=== PATIENT | female | born 2005 | race Caucasian/White ===

== ENCOUNTER 2024-05-12 12:48 | Emergency (ER) | payer OTHER, SELFPAY ==
--- NOTE | ~2024-05-12 | CT_ITS ---
EXAMINATION CT HEAD WITHOUT CONTRAST CLINICAL INFORMATION: Headache COMPARISON: None TECHNIQUE: CT of the head was performed without intravenous contrast. Reformatted axial, coronal, and sagittal images were reviewed. This CT examination was performed using dose optimization techniques as appropriate, variously including the following: *Automated exposure control *Adjustment of mA and/or kV according to patient size (this includes techniques or standardized protocols for targeted exams where dose is matched to indication/reason for exam; i.e. extremities or head) *Use of iterative reconstruction technique DLP: 605 mGy-cm FINDINGS: No intracranial hemorrhage, extra-axial fluid collection, or midline shift is identified. Helm-white matter differentiation is preserved. The ventricles are within normal limits. Basal cisterns are within normal limits. Paranasal sinuses are clear. Mastoid air cells and middle ear cavities are clear. No acute calvarial fractures. CT/CT head/brain wo IV con IMPRESSION: No acute intracranial abnormality. Electronically signed by: Kamaljit Hickey DO 05/12/2024 09:45 PM [facility]
[2024-05-12 12:56] VITALS: BP 150/84; PULSE 84; RESP 20; TEMP 36.9; O2SAT 98; BMI 22.5
--- NOTE | 2024-05-12 12:56 | ED.HA ---
HPI - Headache General Chief Complaint: Headache Stated Complaint: migraine two weeks Time Seen by Provider: 05/12/24 19:43 Source: patient Mode of arrival: ambulatory Limitations: no limitations History of Present Illness ED Provider: CAROLA HPI Narrative: 19 yo female with prior hx of headaches but they usually resolve after 1 day now has a headache for 2 weeks with nausea and photophobia. She denies URI symptoms, head trauma, fevers. States she tries to take excedrin but it won't go away elicited complaint: headache and migraine Pertinent past history: migraines Onset (ago): week(s) (2) Onset description: gradually Location: generalized Severity: moderate Quality & Timing: aching and progressively worsening Exacerbating factors: light and noise Relieving factors: nothing Context: occurred at rest Associated symptoms: nausea and photophobia Treatments prior to arrival: acetaminophen, ibuprofen and migraine medication Related Data Previous Rx's ?Medication ?Instructions ?Recorded ondansetron 4 mg disintegrating 4 mg PO Q8H PRN nausea and 05/12/24 tablet vomiting #20 tabs sumatriptan succinate 50 mg tablet See Rx Instructions PO .COMPLEX #8 05/12/24 tabs Allergies Allergy/AdvReac Type Severity Reaction Status Date / Time No Known Allergies Allergy Verified 05/12/24 12:57 Review of Systems Review of Systems: Constitutional : No Fever, No Chills, No Fatigue ENT/Mouth : No sore throat, No Rhinorrhea Eyes: No Eye Pain, No Swelling, No Redness Cardiovascular : No Chest Pain, No SOB, No Dyspnea on Exertion Respiratory : No Cough, No Sputum Gastrointestinal : pos Nausea, No Vomiting, No Diarrhea, No abdominal Pain Genitourinary : No Dysuria, No Urinary Frequency, No Hematuria, Musculoskeletal : No joint pain, No Myalgias, No Joint Swelling Skin : No Skin Lesions, No rash Neuro : No Weakness, No Numbness, No Dizziness, positive Headache All other systems reviewed and are negative [facility] Past Medical History Attestation statement: The following information was validated with the patient. Source: old records reviewed Medical History Migraine Social History Social History (Updated 05/12/24 @ 20:57 by Deidra Curtis DO) Patient Tobacco Use Status: Never used Tobacco Advance Directives: No Advance Directives Information Provided: Yes Physical Exam Vital Signs: Vital Signs: Last Vital Signs Temp 97.6 F 05/12/24 22:40 Pulse 72 05/12/24 22:40 Resp 18 05/12/24 22:40 BP 126/75 05/12/24 22:40 Pulse Ox 100 05/12/24 22:40 O2 Del Method Room Air 05/12/24 22:40 BMI result Body Mass Index 22.5 Appearance: Alert. Oriented X3. No acute distress. Eyes: Pupils equal, round and reactive to light. ENT: Pharynx normal. Neck: Normal inspection. Neck supple. no meningeal signs CVS: Normal heart rate and rhythm. Pulses normal. Respiratory: No respiratory distress. Breath sounds normal. Abdomen: Soft and nontender. Skin: Skin warm and dry. Normal skin color. Extremities: No lower extremity edema. Neuro: Oriented X 3. No motor deficit. No sensory deficit. Course Course Course Narrative: This is a Rapid Medical Exam performed in triage by Bettie Amos PA-C. Full HPI, ROS and PE to be performed by primary ED provider. 19yo F presenting to the ED c/o headache x2 weeks, w/assoc nausea & photophobia. Has been taking Exedrin & Motrin/Tylenol w/o relief. Admits to commonly getting headaches however this one is lasting longer than normal. LEACH fluctuates througoout the day, not maximal at onset PE: wearing sunglasses, ambulating w/steady gait Plan: Labs Medications Administered Discontinued Medications Generic Name Dose Route Start Last Admin Trade Name Freq PRN Reason Stop Dose Admin Dexamethasone Sodium Phosphate 4 mg 05/12/24 20:40 05/12/24 21:42 Dexamethasone Sod Phosphate 4 Mg/Ml Vial IVPUSH 05/12/24 20:41 4 mg ONCE ONE Administration Diphenhydramine HCl 25 mg 05/12/24 22:28 05/12/24 22:51 Diphenhydramine Hcl 50 Mg/Ml Vial IVPUSH 05/12/24 22:29 25 mg ONCE ONE Administration Ketorolac Tromethamine 15 mg 05/12/24 20:40 05/12/24 21:42 Ketorolac Tromethamine 15 Mg/Ml Vial IVPUSH 05/12/24 20:41 15 mg ONCE ONE Administration Metoclopramide HCl 10 mg 05/12/24 22:28 05/12/24 22:51 Metoclopramide Hcl 10 Mg/2 Ml Vial IVPUSH 05/12/24 22:29 10 mg ONCE ONE Administration Ondansetron HCl 4 mg 05/12/24 20:40 05/12/24 21:42 Ondansetron Hcl 4 Mg/2 Ml Vial IVPUSH 05/12/24 20:41 4 mg ONCE ONE Administration Sumatriptan Succinate 50 mg 05/12/24 21:54 05/12/24 22:10 Sumatriptan Succinate 50 Mg Tablet PO 05/12/24 21:55 50 mg ONCE ONE Administration Medical Decision Making Medical Decision Making [facility] Narrative: 19 yo female with PMH of headaches now with c/o headaches x 2 weeks at this time the patient has no fevers no meningeal signs not toxic appearing will obtain CT head for mass and start on migraine medication. Differential Diagnosis Differential Diagnoses: The differential diagnosis associated with the presentation includes headache, tension, migraine Admission/Observation Consideration of admission/observation: Escalation of care including admission/observation considered feels better stable for DC Lab Data [facility] Lab Attestation statement: I reviewed the patient's lab results. 05/12/24 14:25 05/12/24 14:25 Labs: Lab Results 05/12/24 Range/Units 14:25 WBC 8.1 (4.8-10.8) X10*3/uL RBC 4.34 (4.20-5.50) X10*6/uL Hgb 13.2 (12.0-16.0) g/dl Hct 39.7 (37.0-47.0) % MCV 91.5 (80.0-98.0) fL MCH 30.4 (27.0-33.0) pg MCHC 33.2 (31.0-35.0) g/dl RDW 12.1 (11.0-16.0) % Plt Count 232 (160-400) X10*3/uL MPV 10.2 (9.4-12.3) fL Immature Gran % (Auto) 0.2 (0.0-0.4) % Neut % (Auto) 67.6 (45-73) % Lymph % (Auto) 26.3 (20-40) % [place] % (Auto) 4.6 (2-11) % Eos % (Auto) 1.1 (0-4) % Baso % (Auto) 0.2 (0-2) % Lymph # (Auto) 2.1 (1.2-4.9) X10*3/uL [place] # (Auto) 0.4 (0.1-1.2) X10*3/uL Eos # (Auto) 0.1 (0.0-0.4) X10*3/uL Baso # (Auto) 0.0 (0.0-0.2) X10*3/uL Abs Immat Gran (auto) 0.02 (0.00-0.03) X10*3/uL Absolute Neuts (auto) 5.5 (2.0-8.3) x10*3/uL Absolute Nucleated RBC 0.000 (0.0-0.012) X10*3/uL Nucleated RBC % (auto) 0.0 (0.0-0.2) /100WBC Sodium 142 (135-145) mmol/L Potassium 4.1 (3.3-5.1) mmol/L Chloride 109 H (96-108) mmol/L Carbon Dioxide 24 (22-29) mmol/L Anion Gap 13 (12-20) BUN 7 L (9-16) mg/dL Creatinine 0.70 (0.5-1.4) mg/dL Estim Creat Clear Calc 115.3 Estimated GFR > 60 Random Glucose 96 (60-115) mg/dL Calcium 9.9 (8.4-10.2) mg/dL Magnesium 2.2 (1.6-2.6) mg/dL Total Bilirubin 1.2 H (0.0-1.0) mg/dL Direct Bilirubin 0.3 (0.0-0.5) mg/dL AST 29 (5-31) U/L ALT 19 (0-31) U/L Alkaline Phosphatase 64 (39-117) U/L Total Protein 8.2 H (6.5-8.0) g/dL Albumin 5.0 (3.5-5.0) g/dL Beta HCG, Quant < 2 mIU/mL Independent Interpretation I performed an independent interpretation of an: CT Scan (normal ) Radiology Impression Discussion of test interpretation with radiology: I have reviewed the radiologist's reading. Prescription Management I considered prescription management with: Other Discharge Plan Discharge Clinical Impression: Migraine Qualifiers: Migraine type: unspecified Status migrainosus presence: without status migrainosus Intractability: not intractable Qualified Code(s): G43.909 - Migraine, unspecified, not intractable, without status migrainosus Patient Disposition: Home, Self-Care Instructions: Migraine Headache (ED) Additional Instructions: labs reassuring CT scan negative please return for any worsening symptoms or concerns Prescriptions: New sumatriptan succinate 50 mg tablet See Rx Instructions .ROUTE .COMPLEX Qty: 8 0RF Rx Instructions: take 1 tab at onset of headache; if no relief may repeat 1 tab after at least 2 hrs; max = 4 tabs/24 hr ondansetron 4 mg tablet,disintegrating 4 mg PO Q8H PRN (Reason: nausea and vomiting) Qty: 20 0RF Stand Alone Forms: Work/School Release Print Language: Latvian
[2024-05-12 14:30] LABS: MANUAL DIFF FLAG NO
[2024-05-12 14:32] LABS: Basophils Percent Auto 0.2 % (0-2); Eosinophils Absolute Auto 0.1 X10*3/uL (0.0-0.4); Eosinophils Percent Auto 1.1 % (0-4); Hematocrit 39.7 % (37.0-47.0); Hemoglobin 13.2 g/dl (12.0-16.0); Imm Gran Abs Auto 0.02 X10*3/uL (0.00-0.03); Imm Gran Pct Auto 0.2 % (0.0-0.4); Lymphocytes Absolute Auto 2.1 X10*3/uL (1.2-4.9); Lymphocytes Percent Auto 26.3 % (20-40); Mean Corpuscular HGB Conc 33.2 g/dl (31.0-35.0); Mean Corpuscular Hemoglobin 30.4 pg (27.0-33.0); Mean Corpuscular Volume 91.5 fL (80.0-98.0); Mean Platelet Volume 10.2 fL (9.4-12.3); Monocytes Absolute Auto 0.4 X10*3/uL (0.1-1.2); Monocytes Percent Auto 4.6 % (2-11); Neutrophils Absolute Auto 5.5 x10*3/uL (2.0-8.3); Neutrophils Percent Auto 67.6 % (45-73); Platelet Count 232 X10*3/uL (160-400); Red Blood Count 4.34 X10*6/uL (4.20-5.50); Red Cell Distribution Width 12.1 % (11.0-16.0); White Blood Count 8.1 X10*3/uL (4.8-10.8)
[2024-05-12 15:28] LABS: Alanine Aminotransferase 19 U/L (0-31); Alkaline Phosphatase 64 U/L (39-117); Anion Gap 13 (12-20); Aspartate Amino Transferase 29 U/L (5-31); Bilirubin Direct 0.3 mg/dL (0.0-0.5); Bilirubin Total 1.2 mg/dL (0.0-1.0); Blood Urea Nitrogen 7 mg/dL (9-16); Calcium 9.9 mg/dL (8.4-10.2); Carbon Dioxide 24 mmol/L (22-29); Chloride 109 mmol/L (96-108); Creatinine Clr Calc Pharmacy 115.3; Estimated Glomerular Filt Rate > 60; Glucose Random 96 mg/dL (60-115); Magnesium 2.2 mg/dL (1.6-2.6); Potassium 4.1 mmol/L (3.3-5.1); Sodium 142 mmol/L (135-145); Total Protein 8.2 g/dL (6.5-8.0)
[2024-05-12 15:31] LABS: HCG Quantitative < 2 mIU/mL
[2024-05-12] MEDS: Ketorolac Tromethamine 15 MG/ML VIAL IVPUSH (21:42)
[2024-05-12] MEDS: dexAMETHasone sod phosphate 4 MG/ML VIAL IVPUSH (21:42)
[2024-05-12] MEDS: ondansetron HCL 4 MG/2 ML VIAL IVPUSH (21:42)
[2024-05-12] MEDS: SUMAtriptan succinate 50 MG TABLET PO (22:10)
[2024-05-12 22:40] VITALS: BP 126/75; PULSE 72; RESP 18; TEMP 36.4; O2SAT 100
[2024-05-12] MEDS: diphenhydrAMINE HCL 50 MG/ML VIAL 25 MG IVPUSH (22:51)
[2024-05-12] MEDS: Metoclopramide HCl 10 MG/2 ML VIAL IVPUSH (22:51)
--- NOTE | 2024-05-12 22:56 | PC.NURSE ---
medicated per aug, notified nurse Reina
[2024-05-12 23:58] VITALS: BP 126/75; PULSE 72; RESP 18; TEMP 36.4; O2SAT 100
== END 2024-05-12 23:58 | disposition home or self-care (01) ==
PROVIDERS: Physician Assistant; Emergency Provider Emergency Medicine
DX: G43.909 Migraine, unspecified, not intractable, without status migrainosus (principal); R11.2 Nausea with vomiting, unspecified; H53.143 Visual discomfort, bilateral; R10.2 Pelvic and perineal pain; Z79.899 Other long term (current) drug therapy
CPT/HCPCS: 36415; 70450; 80048; 80076; 83735; 84702; 85025; 96374; 96375; 99284; J1100; J1200; J1885; J2405; J2765